=== PATIENT | female | born 1990 | race American Indian/Alaskan Native ===

== ENCOUNTER 2020-12-14 10:56 | Outpatient (CLI) | payer OTHER ==
[2020-12-14] MEDS ORDERED: LACTATED RINGERS 500 ML IV ONE (11:14)
[2020-12-14 11:33] VITALS: BP 123/73
--- NOTE | 2020-12-14 13:07 | Ultrasound Report ---
ULTRASOUND BIOPHYSICAL PROFILE INDICATION / CLINICAL INFORMATION: labor. COMPARISON: None available. FINDINGS: BREATHING MOVEMENT = 2 GROSS BODY MOVEMENT = 2 TONE = 2 QUALITATIVE AMNIOTIC FLUID VOLUME = 2 TOTAL BIOPHYSICAL SCORE = 8/ AMNIOTIC FLUID INDEX (cm) = 17.8 PRESENTATION: Cephalic. HEART RATE (beats per minute): 140 Additional findings: Anterior placenta is free of the os. No evidence of placental abruption. IMPRESSION: 1. Single live intrauterine . No significant abnormality. biophysical profile = 11/19 Signer Name: Ld Chiu MD Signed: 12/14/2020 1:02 PM Workstation Name: [id number]
== END 2020-12-14 13:35 | disposition home or self-care (01) ==
LOC: TRG 10:56 → APU 11:03 → TRG 13:35
PROVIDERS: ATTEND Obstetrics & Gynecology
DX: Z34.93 Encounter for supervision of normal pregnancy, unspecified, third trimester (principal); Z3A.37 37 weeks gestation of pregnancy
CPT/HCPCS: 59025; 76815; 76819

== ENCOUNTER 2021-01-09 11:57 | Outpatient (CLI) | payer OTHER ==
[2021-01-09 12:32] VITALS: BP 120/78
[2021-01-09 13:20] LABS: Bilirubin,Urine NEG (Negative); Blood,Urine NEG (Negative); Color,Urine Yellow (Yellow); Mucus,Urine FEW /HPF; Protein,Urine <15 mg/dL mg/dL (Negative); Urobilinogen,Urine < 2.0 mg/dL (<2.0)
[2021-01-09] MEDS ORDERED: LACTATED RINGERS 1,000 ML IV ONE (13:21)
== END 2021-01-09 13:00 | disposition home or self-care (01) ==
LOC: TRG 11:57 → APU 11:59 → TRG 13:00
PROVIDERS: ATTEND Obstetrics & Gynecology
DX: O99.353 Diseases of the nervous system complicating pregnancy, third trimester (principal); G43.909 Migraine, unspecified, not intractable, without status migrainosus; Z3A.34 34 weeks gestation of pregnancy
CPT/HCPCS: 59025; 81001

== ENCOUNTER 2021-01-17 05:05 | Inpatient (IN) | payer OTHER ==
--- NOTE | 2021-01-16 16:12 | History and Physical Report ---
History of Present Illness Date of examination: 01/17/21 Chief complaint: scheduled section History of present illness: Pt is a 30 year old -Martiniquais female SONY 02/11/21 at 36w3d presents for scheduled section secondary to [facility] recommendation for delivery between 36-38 wks for poorly controlled diabetes. She denies vaginal bleeding or leakage of fluid. She has had care at [facility] since 24 wks complicated by insulin dependent diabetes mellitus on 56u N/46uR, 32uR Q PM, 29u NPH as of 01/02/21; h/o placental abruption, polyhydramnios, prior x 1, h/o preeclampsia, LGA fetus. She is GBS positive. Past History Past Medical History: diabetes, migraines, GERD Past Surgical History: section [employer] History: chlamydia (remote history) Family/Genetic History: diabetes, hypertension Social history: no significant social history - Obstetrical History Expected Date of Delivery: 02/11/21 Actual Gestation: 36 Week(s) 2 Day(s) : 3 Para: 1 Hx # Term Pregnancies: 1 Number of Pregnancies: 0 Spontaneous Abortions: 1 Induced : 0 Number of Living Children: 1 Medications and Allergies Allergies Allergy/AdvReac Type Severity Reaction Status Date / Time No Known Allergies Allergy Verified 05/11/14 10:33 Home Medications Medication Instructions Recorded Confirmed Last Taken Type Acetaminophen/Codeine 1 tab PO Q6H PRN #15 tab 05/11/14 Unknown Rx [Acetaminophen-Codeine #3 TAB] Amoxicillin [Trimox CAP] 500 mg PO Q8H #30 capsule 05/11/14 Unknown Rx Review of Systems All systems: negative - Physical Exam Breasts: Positive: deferred Abdomen: Positive: soft (gravid) Uterus: Positive: enlarged (gravid ) Extremities: Positive: normal - Obstetrical FHR: auscultation normal Uterine Contraction Pattern: Irregular Uterine Tone Measurement Phase: Resting Results All other labs normal. Assessment and Plan A: IUP at 36w3d Insulin diabetes mellitus on 56u N/46uR, 32uR Q PM, 29u NPH as of 01/02/21 Previous x 1 LGA fetus Polyhydramnios H/o Preeclampsia H/o placental abruption in previous GBS positive P: Proceed with repeat section and other indicated procedures.
[~2021-01-17 05:05] MED LIST: OXYTOCIN DRIP 30 UNITS/500 ML BAG IV SCH
[2021-01-17] MEDS: LACTATED RINGERS 1,000 ML IV SCH ×2 (05:50→07:07)
[2021-01-17] MEDS ORDERED: BICITRA ORAL LIQD 30ML PO ONE (06:00)
[2021-01-17] MEDS ORDERED: ceFAZolin/Water 2 GM/20 ML 2 GM/20 ML SYRINGE IV NR (06:00)
[2021-01-17] MEDS ORDERED: FAMOTIDINE 20 MG/2 ML INJ IV ONE (06:00)
[2021-01-17] MEDS ORDERED: METOCLOPRAMIDE 10 MG/2 ML INJ IV ONE (06:00)
[2021-01-17 06:10] LABS: Basophils % (Auto) 0.4 % (0.0-1.8); Eosinophils # (Auto) 0.3 K/mm3 (0.0-0.4); Eosinophils % (Auto) 3.3 % (0.0-4.3); Hematocrit 31.6 % (30.3-42.9); Lymphocytes # (Auto) 3.3 K/mm3 (1.2-5.4); Lymphocytes % (Auto) 40.9 % (13.4-35.0); Mean Corpuscular HGB Conc 32 % (30-34); Mean Corpuscular Volume 74 fl (79-97); Monocytes # (Auto) 0.5 K/mm3 (0.0-0.8); Monocytes % (Auto) 6.3 % (0.0-7.3); Platelet Count 212 K/mm3 (140-440); Red Blood Count 4.26 M/mm3 (3.65-5.03); Red Cell Distribution Width 18.3 % (13.2-15.2)
--- NOTE | 2021-01-17 06:55 | Anesthesia Consultation ---
Anesthesia Consult and Med Hx Date of service: 01/17/21 - Airway Anesthetic Teeth Evaluation: Good ROM Head & Neck: Adequate Mental/Hyoid Distance: Adequate Mallampati Class: Class III Intubation Access Assessment: Probably Good - Pulmonary Exam CTA: Yes - Cardiac Exam Cardiac Exam: RRR - Pre-Operative Health Status ASA Pre-Surgery Classification: ASA3 Proposed Anesthetic Plan: Spinal - Pulmonary Hx Asthma: No COPD: No Hx Pneumonia: No - Central Nervous System Hx Seizures: No Hx Psychiatric Problems: No - Endocrine Hx Renal Disease: No Hx End Stage Renal Disease: No Hx Insulin Dependent Diabetes: Yes Hx Hypothyroidism: No Hx Hyperthyroidism: No - Hematic Hx Anemia: No Hx Sickle Cell Disease: No - Other Systems Hx Alcohol Use: No (occasionally) Hx Obesity: Yes
--- NOTE | 2021-01-17 06:56 | Anesthesia Day of Surgery ---
Anesthesia Day of Surgery - Day of Surgery Patient Examined: Yes Patient H&P Reviewed: Yes Patient is NPO: Yes
[2021-01-17] MEDS ORDERED: miSOPROStol 200 MCG TAB ONE (07:05)
[2021-01-17] MEDS ORDERED: ceFAZolin/STERILE WATER 2 GM/20 ML SYRINGE IV ONE (08:00)
[2021-01-17] MEDS ORDERED: WATER FOR IRRIG STERILE 1,500 ML BOTTLE IR ONE (08:00)
[2021-01-17] MEDS ORDERED: SODIUM CHLORIDE 0.9% IRR 1,500 ML BOTTLE IR ONE (08:00)
[2021-01-17] MEDS ORDERED: BUPIVACAINE/PF (0.5%) 5 MG/1 ML 30 ML VIAL INFILTRATI ONE (09:16)
[2021-01-17] MEDS ORDERED: LACTATED RINGERS 2,000 ML ONE (09:16)
[2021-01-17] MEDS ORDERED: ONDANSETRON 4 MG/2 ML INJ ONE (09:16)
[2021-01-17] MEDS ORDERED: dexAMETHasone 20 MG/5 ML VIAL ONE (09:16)
[2021-01-17] MEDS ORDERED: PHENYLEPHRINE/NS 1,000 MCG/10 ML SYRINGE (OR USE) IV ONE (09:16)
[2021-01-17] MEDS ORDERED: KETOROLAC 30 MG/1 ML INJ ONE (09:16)
--- NOTE | 2021-01-17 09:17 | Procedure Note ---
OB Delivery Note - Delivery Date of Delivery: 01/17/21 Surgeon: LILLIAM CASTANEDA Estimated blood loss: other (921 by QBL) - Section Preop diagnosis: repeat Postop diagnosis: same section procedure: section, repeat low transverse Disposition: PACU Complications: uterine atony Narrative: Please see operative report - Infant A at 1 minute: 9 at 5 minutes: 9 Gender: Male (4370g (9lb 10oz) @ 0822 am)
--- NOTE | 2021-01-17 09:22 | Operative Report ---
Operative Report Operative Report: Date of procedure: January 17, 2021 Preoperative diagnosis: 1) IUP at 36w3d 2) Poorly controlled insulin dependent Diabetes 3) Previous section x 1 4) Obesity Postoperative diagnosis: Same 5) Fibroid Uterus Procedure: Repeat low transverse section Surgeon: Dianne Braden M.D. Anesthesia: Regional Findings: 1) Viable male , Apgars 9 and 9, weight 4370 g, (9 lb 10 oz) in cephalic presentation. Terminal meconium. 2) Normal-appearing uterus ovaries and tubes Estimated blood loss: 921 by QBL IV fluids: 3000 mL Urine output: 600 mL, clear at the end of the procedure Drains: Ortiz to gravity Specimens: Placenta to pathology Complications:None. Counts correct x 3 Disposition: Stable to PACU Indication for procedure: Pt is a 30 year old at 36w3d who presents for scheduled section secondary to poorly controlled insulin dependent diabetes and previous x 1 after [facility] recommendation for delivery between 36 and 38 weeks. Operation in detail: After the risks, benefits, alternatives and complications were explained to the patient she gave informed consent for the procedure. She was subsequently taken to the operating room where regional anesthesia was noted to be adequate. She was placed in the dorsal supine position with leftward tilt and prepped and draped in a normal sterile fashion. heart tones were noted prior to incision. A timeout was performed. A Pfannenstiel skin incision was made with the knife and carried down to the layer of the fascia with the Bovie. The fascia was incised in the midline and the fascial incision was extended bilaterally with the Bovie. The fascial incision was then stretched. The rectus muscles were then in the midline and partially transected for adequate visualization. The peritoneum was then entered bluntly. The peritoneal incision was extended with good visualization of the bladder. The peritoneal incision was then stretched. An Abhijeet retractor was placed. The bladder blade was then placed. The vesicouterine peritoneum was grasped with smooth pick ups and incised with Metzenbaum scissors. A bladder flap was then created digitally and the bladder blade was replaced. A transverse incision was made in the lower uterine segment with a knife and extended bilaterally with the bandage scissors. Amniotomy was performed with egress of clear fluid. head delivered with ease, followed by shoulders and body. bulb suctioned at delivery. Cord clamped and cut. handed to NICU staff in attendance. The placenta was then delivered manually. The uterus was then exteriorized and cleared of all clots and debris. The hysterotomy was then reapproximated with 0 Monocryl in a running locked fashion. A second layer of the same suture was used in imbricating fashion. The hysterotomy was inspected and hemostasis was noted. The gutters were irrigated and cleared of all clots and debris. The uterus was placed back into the peritoneal cavity. The hysterotomy was again inspected and noted to be hemostatic. Surgicel was placed over the hysterotomy. The Abhijeet retractor was removed. The peritoneum was reapproximated with 0 Monocryl in a running fashion incorporating the rectus muscles. Surgicel was placed over the rectus muscles. The fascia was reapproximated with 0 Vicryl in a running fashion. The subcutaneous tissue was reapproximated with 2-0 Vicryl in a running fashion. The skin was reapproximated with 3-0 Monocryl in a subcuticular fashion. The incision was then covered with steri strips and a pressure dressing. The procedure was then ended. The patient tolerated the procedure well and was taken to the PACU in stable condition. All instrument, lap, and needle counts were correct 3.
--- NOTE | 2021-01-17 11:17 | Progress Note ---
Spinal Anesthesia Block - Spinal Anesthesia Block Start Time: 07:40 Stop Time: 07:42 Performed by:: SARINA GAMING Procedure: Sitting, sterile chlorahexadine 0.5% prep/drape, 1% lidocaine skin local, 25G spinal needle + introducer at L3-4, + CSF, - Heme, [1.9 ml 0.5% bupivacaine + 10 mcg dexmedetomidine] injected, drape removed, patient positioned supine with left uterine displacement, and spinal level verified to be adequate prior to surgery
[2021-01-17] MEDS ORDERED: HYDROmorphone 1 MG/1 ML INJ IV PRN (11:28)
[2021-01-17] MEDS ORDERED: FLU VACC QUAD 2021-22(6MOS UP)/PF 60 MCG/0.5 ML SYRINGE IM ONE (12:00)
[2021-01-17] MEDS ORDERED: MORPHINE 2 MG/1 ML INJ IV PRN (12:17)
[2021-01-17] MEDS ORDERED: ACETAMINOPHEN 325 MG TAB PO PRN (12:17)
[2021-01-17] MEDS ORDERED: SIMETHICONE 80 MG CHEW TAB PO PRN (12:17)
[2021-01-17] MEDS ORDERED: NALOXONE 0.4 MG/1 ML INJ IV PRN (12:17)
[2021-01-17] MEDS ORDERED: DEXTROSE 50% IN WATER (25GM) 50 ML SYRINGE IV PRN (12:17)
[2021-01-17] MEDS ORDERED: ONDANSETRON 4 MG/2 ML INJ IV PRN (12:17)
[2021-01-17] MEDS ORDERED: LANOLIN/ZINC/DIMETHICONE (LANSINOH) 7 GM TP PRN (12:17)
[2021-01-17] MEDS ORDERED: MAGNESIUM HYDROXIDE (MOM) ORAL LIQD UDC PO PRN (12:17)
[2021-01-17] MEDS ORDERED: OXYTOCIN DRIP 30 UNITS/500 ML BAG IV SCH (12:17)
[2021-01-17] MEDS ORDERED: MORPHINE 4 MG/1 ML INJ IV PRN (12:17)
[2021-01-17] MEDS ORDERED: WITCH HAZEL/ GLYCERIN PAD TP PRN (12:17)
[2021-01-17] MEDS ORDERED: ceFAZolin/NS 1 GM/50 ML 1 GM/50 ML BAG IV SCH (12:17)
[2021-01-17] MEDS ORDERED: D5W/LACTATED RINGERS 1,000 ML IV SCH (12:17)
[2021-01-17] MEDS: KETOROLAC 30 MG/1 ML INJ IV SCH ×2 (15:17→22:01)
[2021-01-17] MEDS: INSULIN REGULAR, HUMAN 100 UNITS/1 ML SUB-Q SCH ×2 (16:22→22:01)
[2021-01-17] MEDS ORDERED: LACTATED RINGERS 1,000 ML IV SCH (18:00)
[2021-01-17] MEDS ORDERED: TETANUS,DIPH,PERTUSS(ACELL) VACCINE 0.5 ML SYRINGE IM ONE (18:33)
[2021-01-17 21:08] LABS: Hematocrit 25.7 % (30.3-42.9); Hemoglobin 8.2 gm/dl (10.1-14.3)
[2021-01-18] MEDS ORDERED: ceFAZolin/NS 1 GM/50 ML 1 GM/50 ML BAG IV SCH (01:30)
[2021-01-18] MEDS: KETOROLAC 30 MG/1 ML INJ IV SCH (04:12)
[2021-01-18] MEDS: INSULIN REGULAR, HUMAN 100 UNITS/1 ML SUB-Q SCH ×3 (04:18→18:10)
--- NOTE | 2021-01-18 08:20 | Progress Note ---
Assessment and Plan - Patient Problems (1) Status post repeat low transverse section Current Visit: Yes Status: Acute Plan to address problem: Continue routine PP orders Keep dressing clean and dry, remove on POD#2 Anticipate d/c home in 24-48 hr if stable (2) Insulin dependent diabetes mellitus Current Visit: Yes Status: Acute Plan to address problem: Blood glucose levels elevated Physician managing insulin dosing Continue to monitor blood glucose levels per orders (3) Anemia Current Visit: Yes Status: Acute Qualifiers: Anemia type: iron deficiency Plan to address problem: Asymptomatic Increase iron rich foods into diet Continue daily oral iron supplementation as ordered Subjective - Subjective Date of service: 01/18/21 Principal diagnosis: S/P repeat C/S; POD#1; IDDM Interval history: Pt is a 30 year old -Thai female SONY 02/11/21 at 36w3d presents for scheduled section secondary to [facility] recommendation for delivery between 36-38 wks for poorly controlled diabetes. She denies vaginal bleeding or leakage of fluid. She has had care at [facility] since 24 wks complicated by insulin dependent diabetes mellitus on 56u N/46uR, 32uR Q PM, 29u NPH as of 01/02/21; h/o placental abruption, polyhydramnios, prior x 1, h/o preeclampsia, LGA fetus. She is GBS positive. Patient reports: appetite normal, voiding normally, pain well controlled (with medications), flatus, ambulating normally, no bowel movement [place]: in NICU, bottle feeding Objective - Vital Signs Latest vital signs: Vital Signs Temp Pulse Resp BP BP Pulse Ox Pulse Ox 01/18/21 04:42 18 01/18/21 04:23 105 H 18 114/64 98 01/18/21 04:12 18 01/18/21 00:43 98.5 F 107 H 18 101/58 98 01/17/21 22:31 18 01/17/21 22:01 18 01/17/21 21:00 100 01/17/21 20:55 18 01/17/21 20:31 98.1 F 108 H 18 102/67 97 01/17/21 20:25 18 01/17/21 16:19 98.6 F 98 H 18 109/76 97 01/17/21 12:54 97 01/17/21 11:45 98.4 F 105 H 18 110/59 110/59 98 97 01/17/21 10:15 97.9 F 99 H 18 126/33 99 01/17/21 10:00 86 13 103/44 97 01/17/21 09:45 88 13 105/63 97 01/17/21 09:40 89 12 103/43 96 01/17/21 09:35 94 H 17 103/49 97 01/17/21 09:28 98.1 F 84 21 105/60 97 Intake and Output 01/17/21 01/18/21 01/18/21 23:59 07:59 15:59 Intake Total 1320 Output Total 2400 800 Balance -1080 -800 Intake: Oral 720 Intake, Free Water 600 Output: Urine 2400 800 Indwelling Catheter 2400 Void 800 Other: Total, Intake Amount 240 Total, Output Amount 1800 800 - Exam Breasts: Present: normal Cardiovascular: Present: Regular rate Lungs: Present: Normal air movement Abdomen: Present: soft, tenderness Uterus: Present: firm, fundal height below umbilicus (U-2) Extremities: Present: edema Deep Tendon Reflex Grade: Normal +2 Incision: Present: dressed (no shadow drainage or bleeding noted) - Labs Labs: Abnormal lab results 01/17/21 01/17/21 01/17/21 Range/Units 09:44 16:15 20:54 Hgb 8.2 L (10.1-14.3) gm/dl Hct 25.7 L (30.3-42.9) % POC Glucose 137 H 229 H (70-105) mg/dL 01/17/21 01/18/21 Range/Units 21:53 04:11 Hgb (10.1-14.3) gm/dl Hct (30.3-42.9) % POC Glucose 298 H 194 H (70-105) mg/dL
[2021-01-18] MEDS ORDERED: MEASLES, MUMPS & RUBELLA 12,500 UNIT/0.5 ML VACCINE SUB-Q ONE (09:24)
[2021-01-18] MEDS ORDERED: TETANUS,DIPH,PERTUSS(ACELL) VACCINE 0.5 ML SYRINGE IM ONE (09:24)
[2021-01-18] MEDS: oxyCODONE /ACETAMINOPHEN 5-325MG TAB PO PRN ×2 (09:56→18:13)
[2021-01-18] MEDS: FERROUS SULFATE 325 MG TAB PO SCH (09:56)
[2021-01-18] MEDS: INSULIN NPH, HUMAN 100 UNIT/1 ML SUB-Q SCH ×2 (09:57→18:09)
[2021-01-18] MEDS ORDERED: FLU VACC QUAD 2021-22(6MOS UP)/PF 60 MCG/0.5 ML SYRINGE IM ONE (12:00)
--- NOTE | 2021-01-18 16:01 | Post Anesthesia Evaluation ---
- Post Anesthesia Evaluation Patient Participated: Yes Airway Patent: Yes Stable Respiratory Function: Yes Nausea/Vomiting: No Temp > 96.8F: Yes Pain Manageable: Yes Adequeate Hydration: Yes Anesthesia Complications: No Block Receding Appropriately: Yes
[2021-01-18] MEDS: IBUPROFEN 800 MG TAB PO PRN (19:00)
[2021-01-19] MEDS: IBUPROFEN 800 MG TAB PO PRN ×2 (02:48→14:12)
--- NOTE | 2021-01-19 07:47 | Progress Note ---
Assessment and Plan - Patient Problems (1) Status post repeat low transverse section Current Visit: Yes Status: Acute Plan to address problem: Glucose levels are improved Will administer Flexeril to assist in back pain Monitor overnight with consideration for discharge tomorrow Subjective - Subjective Date of service: 01/19/21 Principal diagnosis: S/P repeat C/S; POD#1; IDDM Interval history: Patient is postop day #2 status post a repeat delivery. Today she complains of lower back pain. She states that the pain has been affecting her ability to ambulate adequately. She reports that she was evaluated by anesthesia yesterday. She is tolerating her diet without complication. Patient reports: appetite normal, voiding normally Reading: doing well Objective - Vital Signs Latest vital signs: Vital Signs Temp Pulse Resp BP Pulse Ox Pulse Ox 01/19/21 03:29 99 01/19/21 02:48 18 99 01/19/21 00:22 101 H 95 01/18/21 19:40 99 01/18/21 16:56 98.8 F 103 H 18 115/79 99 01/18/21 12:48 97.6 F 115 H 18 126/73 100 01/18/21 08:30 100 01/18/21 08:27 98.7 F 99 H 20 116/78 100 Intake and Output 01/18/21 01/19/21 01/19/21 22:59 06:59 14:59 Intake Total 200 Balance 200 Intake: Oral 200 Other: Total, Intake Amount 200 # Voids Void 1 - Labs Labs: Abnormal lab results 01/18/21 01/18/21 01/18/21 Range/Units 09:48 18:03 22:01 POC Glucose 183 H 129 H 110 H (70-105) mg/dL 01/19/21 Range/Units 06:56 POC Glucose 117 H (70-105) mg/dL
[2021-01-19] MEDS: CYCLOBENZAPRINE 10 MG TAB PO SCH ×3 (08:56→20:20)
[2021-01-19] MEDS: FERROUS SULFATE 325 MG TAB PO SCH (09:42)
[2021-01-19] MEDS: INSULIN REGULAR, HUMAN 100 UNITS/1 ML SUB-Q SCH ×2 (09:43→17:12)
[2021-01-19] MEDS: INSULIN NPH, HUMAN 100 UNIT/1 ML SUB-Q SCH ×2 (09:46→17:12)
[2021-01-19] MEDS: oxyCODONE /ACETAMINOPHEN 5-325MG TAB PO PRN ×3 (10:36→23:17)
[2021-01-20] MEDS: oxyCODONE /ACETAMINOPHEN 5-325MG TAB PO PRN ×2 (05:46→15:32)
[2021-01-20] MEDS: CYCLOBENZAPRINE 10 MG TAB PO SCH (08:24)
[2021-01-20] MEDS: INSULIN NPH, HUMAN 100 UNIT/1 ML SUB-Q SCH (08:28)
[2021-01-20] MEDS: INSULIN REGULAR, HUMAN 100 UNITS/1 ML SUB-Q SCH (08:28)
--- NOTE | 2021-01-20 15:00 | Discharge Summary ---
Providers - Providers Date of Admission: 01/17/21 05:05 Date of discharge: 01/20/21 Attending physician: LILLIAM CASTANEDA 01/17/21 12:17 Consult to Footwear Sales Leader [CONS] Routine Reason For Exam: Primary care physician: LILLIAM CASTANEDA Hospitalization Reason for admission: section Delivery: Procedure: repeat low transverse Episiotomy: none Laceration: none Incision: dry, intact (steri-strips intact, no drainage or bleeding noted, abdominal binder in place) Other procedures: none complications: none Discharge diagnosis: delivery [place] baby: male Hospital course: Pt is a 30 year old -Citizen [place] female SONY 02/11/21 at 36w3d presents for scheduled section secondary to [facility] recommendation for delivery between 36-38 wks for poorly controlled diabetes. She denies vaginal bleeding or leakage of fluid. She has had care at [facility] since 24 wks complicated by insulin dependent diabetes mellitus on 56u N/46uR, 32uR Q PM, 29u NPH as of 01/02/21; h/o placental abruption, polyhydramnios, prior x 1, h/o preeclampsia, LGA fetus. She is GBS positive. Condition at discharge: Stable Disposition: 01 HOME / SELF CARE / HOMELESS - Discharge Diagnoses (1) Status post repeat low transverse section Status: Acute (2) Insulin dependent diabetes mellitus Status: Acute (3) Anemia Status: Acute Qualifiers: Anemia type: iron deficiency Plan - Discharge Medications Prescriptions: Cyclobenzaprine HCl [Flexeril 5 MG TAB] 5 mg PO TID PRN #15 tab PRN Reason: back pain Ibuprofen [Motrin] 800 mg PO Q8HR PRN #60 tablet PRN Reason: Pain , Severe (7-10) oxyCODONE /ACETAMINOPHEN [Percocet 5/325] 1 tab PO Q6HR PRN #30 tablet PRN Reason: Pain - Provider Discharge Summary Activity: routine, no sex for 6 weeks, no heavy lifting 4 weeks, no strenuous exercise Diet: routine (Iron rich diet) Instructions: routine Additional instructions: [] Smoking cessation referral if applicable(refer to patient education folder for contact #) [] Refer to [facility] Booklet Call your doctor immediately for: * Fever > 100.5 * Heavy vaginal bleeding ( >1 pad per hour) * Severe persistent headache * Shortness of breath * Reddened, hot, painful area to leg or breast * Drainage or odor from incision. * Keep incision clean and dry at all times and follow doctor's instructions regarding bathing/showering * Continue insulin as follows at home until seen in the office in 1 week: NPH 14 units and Regular 11 units in the morning NPH 7 units and Regular 8 units in the PM - Follow up plan Follow up: LILLIAM CASTANEDA MD [Primary Care Provider] - 7 Days Forms: [facility] Discharge Summary
[2021-01-20 17:31] VITALS: BP 123/80
== END 2021-01-20 19:30 | disposition home or self-care (01) | DRG 765 ==
LOC: APU 05:05 → OB 10:30
PROVIDERS: ADMIT Obstetrics & Gynecology; ATTEND Obstetrics & Gynecology
PROC: 10D00Z1 Extraction of Products of Conception, Low, Open Approach (ICD-10-PCS; principal; 2021-01-17)
PROC: 3E0234Z Introduction of Serum, Toxoid and Vaccine into Muscle, Percutaneous Approach (ICD-10-PCS; 2021-01-18)
DX: O24.12 Pre-existing type 2 diabetes mellitus, in childbirth (principal); O60.14X0 Preterm labor third trimester with preterm delivery third trimester, not applicable or unspecified; O36.63X0 Maternal care for excessive fetal growth, third trimester, not applicable or unspecified; O40.3XX0 Polyhydramnios, third trimester, not applicable or unspecified; Z37.0 Single live birth; Z3A.36 36 weeks gestation of pregnancy; D50.8 Other iron deficiency anemias; Z20.822 Contact with and (suspected) exposure to COVID-19; O34.13 Maternal care for benign tumor of corpus uteri, third trimester; O34.211 Maternal care for low transverse scar from previous cesarean delivery; D25.9 Leiomyoma of uterus, unspecified; O99.824 Streptococcus B carrier state complicating childbirth; Z91.048 Other nonmedicinal substance allergy status; Z23 Encounter for immunization; O99.354 Diseases of the nervous system complicating childbirth; G43.909 Migraine, unspecified, not intractable, without status migrainosus; E11.65 Type 2 diabetes mellitus with hyperglycemia; O99.62 Diseases of the digestive system complicating childbirth; K21.9 Gastro-esophageal reflux disease without esophagitis; Z83.3 Family history of diabetes mellitus; Z82.49 Family history of ischemic heart disease and other diseases of the circulatory system; O99.214 Obesity complicating childbirth; O77.0 Labor and delivery complicated by meconium in amniotic fluid; O90.81 Anemia of the puerperium; Z79.4 Long term (current) use of insulin
CPT/HCPCS: 36415; 59025; 82962; 85014; 85018; 85025; 86592; 86850; 86900; 86901; 88307; 99211; G0378; G0463; J0690; J1100; J1170; J1815; J1885; J2270; J2370; J2405; J2765; J3490; J7120; U0003

== ENCOUNTER 2021-01-24 16:31 | Emergency (ER) | payer OTHER ==
[2021-01-24 17:59] LABS: Basophils % (Auto) 0.5 % (0.0-1.8); Eosinophils # (Auto) 0.2 K/mm3 (0.0-0.4); Eosinophils % (Auto) 1.9 % (0.0-4.3); Hematocrit 25.1 % (30.3-42.9); Hemoglobin 7.7 gm/dl (10.1-14.3); Lymphocytes # (Auto) 2.2 K/mm3 (1.2-5.4); Lymphocytes % (Auto) 26.7 % (13.4-35.0); Mean Corpuscular HGB Conc 31 % (30-34); Mean Corpuscular Volume 76 fl (79-97); Monocytes # (Auto) 0.6 K/mm3 (0.0-0.8); Monocytes % (Auto) 7.5 % (0.0-7.3); Platelet Count 313 K/mm3 (140-440); Red Blood Count 3.33 M/mm3 (3.65-5.03)
--- NOTE | 2021-01-24 18:01 | Emergency Department Report ---
ED General Adult HPI - General Chief complaint: Dyspnea/Respdistress Stated complaint: SOB CHEST PAIN HAD SURGERY 01/17 Time Seen by Provider: 01/24/21 17:00 Source: patient Mode of arrival: Ambulatory Limitations: No Limitations - History of Present Illness Initial comments: The patient presents to the emergency department the chief complaint of chest pain or shortness of breath that started yesterday. Patient complains of coughing as well but denies fever. Patient has not received the Covid 19 vaccine. Patient states the chest pain or shortness of breath is worse walking. Patient denies abdominal pain, headache, weakness. -: Sudden Location: chest Radiation: non-radiation Severity scale (0 -10): 5 Quality: aching Improves with: none Worsens with: none Associated Symptoms: denies other symptoms Treatments Prior to Arrival: none - Related Data Home Medications Medication Instructions Recorded Confirmed Last Taken Aspirin [[place]] 1 tab PO DAILY 01/17/21 01/17/21 01/15/21 Insulin NPH Human Isophane 54 units SQ DAILY 01/17/21 01/17/21 01/16/21 [Humulin N] Insulin Regular, Human [Humulin R] 44 units SQ DAILY 01/17/21 01/17/21 01/16/21 Previous Rx's Medication Instructions Recorded Last Taken Type Cyclobenzaprine HCl [Flexeril 5 MG 5 mg PO TID PRN #15 tab 01/19/21 Unknown Rx TAB] Ibuprofen [Motrin] 800 mg PO Q8HR PRN #60 tablet 01/19/21 Unknown Rx oxyCODONE /ACETAMINOPHEN [Percocet 1 tab PO Q6HR PRN #30 tablet 01/19/21 Unknown Rx 5/325] Albuterol Mdi (or & Nicu Only) 2 puff IH Q4HR PRN #1 inhalation 01/24/21 Unknown Rx [ProAir HFA Inhaler] Azithromycin [Zithromax Z-ALICJA] 250 mg PO DAILY #6 tablet 01/24/21 Unknown Rx predniSONE [Deltasone] 20 mg PO DAILY #15 tablet 01/24/21 Unknown Rx Allergies Allergy/AdvReac Type Severity Reaction Status Date / Time nickel Allergy Rash Verified 01/24/21 16:36 ED Review of Systems ROS: Stated complaint: SOB CHEST PAIN HAD SURGERY 01/17 Other details as noted in HPI Constitutional: denies: chills, fever Eyes: denies: eye pain, eye discharge, vision change ENT: denies: ear pain, throat pain Respiratory: shortness of breath. denies: cough, wheezing Cardiovascular: chest pain, dyspnea on exertion. denies: palpitations Endocrine: no symptoms reported Gastrointestinal: denies: abdominal pain, nausea, diarrhea Genitourinary: denies: urgency, dysuria, discharge Musculoskeletal: denies: back pain, joint swelling, arthralgia Skin: denies: rash, lesions Neurological: denies: headache, weakness, paresthesias Psychiatric: denies: anxiety, depression Hematological/Lymphatic: denies: easy bleeding, easy bruising ED Past Medical Hx - Past Medical History Hx Hypertension: Yes (PIH 2016) Hx Congestive Heart Failure: No Hx Diabetes: Yes (GDM 2016 and current) Hx Deep Vein Thrombosis: No Hx Renal Disease: No Hx Sickle Cell Disease: No Hx Seizures: No Hx Asthma: No Hx COPD: No Hx HIV: No - Social History Smoking Status: Never Smoker - Medications Home Medications: Home Medications Medication Instructions Recorded Confirmed Last Taken Type Aspirin [Vazalore] 1 tab PO DAILY 01/17/21 01/17/21 01/15/21 History Insulin NPH Human Isophane 54 units SQ DAILY 01/17/21 01/17/21 01/16/21 History [Humulin N] Insulin Regular, Human [Humulin R] 44 units SQ DAILY 01/17/21 01/17/21 01/16/21 History Cyclobenzaprine HCl [Flexeril 5 MG 5 mg PO TID PRN #15 tab 01/19/21 Unknown Rx TAB] Ibuprofen [Motrin] 800 mg PO Q8HR PRN #60 tablet 01/19/21 Unknown Rx oxyCODONE /ACETAMINOPHEN [Percocet 1 tab PO Q6HR PRN #30 tablet 01/19/21 Unknown Rx 5/325] Albuterol Mdi (or & Nicu Only) 2 puff IH Q4HR PRN #1 inhalation 01/24/21 Unknown Rx [ProAir HFA Inhaler] Azithromycin [Zithromax Z-ALICJA] 250 mg PO DAILY #6 tablet 01/24/21 Unknown Rx predniSONE [Deltasone] 20 mg PO DAILY #15 tablet 01/24/21 Unknown Rx ED Physical Exam - General Limitations: No Limitations General appearance: alert, in no apparent distress - Head Head exam: Present: atraumatic, normocephalic - Eye Eye exam: Present: normal appearance, PERRL, EOMI - ENT ENT exam: Present: mucous membranes moist - Neck Neck exam: Present: normal inspection - Respiratory Respiratory exam: Present: decreased breath sounds. Absent: respiratory distress - Cardiovascular Cardiovascular Exam: Present: normal rhythm, tachycardia. Absent: systolic murmur, diastolic murmur, rubs, gallop - GI/Abdominal GI/Abdominal exam: Present: soft, normal bowel sounds. Absent: distended, tenderness - Extremities Exam Extremities exam: Present: normal inspection - Back Exam Back exam: Present: normal inspection - Neurological Exam Neurological exam: Present: alert, oriented X3, CN II-XII intact. Absent: motor sensory deficit - Psychiatric Psychiatric exam: Present: normal affect, normal mood - Skin Skin exam: Present: warm, dry, intact, normal color. Absent: rash ED Course Vital Signs 01/24/21 01/24/21 01/24/21 16:37 16:51 17:01 Temperature 98.4 F Pulse Rate 114 H 106 H Respiratory 22 25 H Rate Blood Pressure 151/93 149/97 Blood Pressure [Left] O2 Sat by Pulse 99 98 99 Oximetry 01/24/21 01/24/21 01/24/21 17:06 17:15 17:31 Temperature Pulse Rate 110 H 104 H 101 H Respiratory 18 34 H 33 H Rate Blood Pressure 152/99 143/98 Blood Pressure 152/99 [Left] O2 Sat by Pulse 100 100 98 Oximetry 01/24/21 01/24/21 01/24/21 17:45 18:01 18:15 Temperature Pulse Rate 104 H 97 H 100 H Respiratory 25 H 38 H 41 H Rate Blood Pressure 145/94 146/86 148/92 Blood Pressure [Left] O2 Sat by Pulse 96 98 99 Oximetry 01/24/21 01/24/21 01/24/21 18:31 18:51 19:01 Temperature Pulse Rate 101 H 93 H Respiratory 30 H 36 H Rate Blood Pressure 148/92 143/85 151/86 Blood Pressure [Left] O2 Sat by Pulse 95 98 98 Oximetry 01/24/21 01/24/21 01/24/21 19:15 19:31 19:41 Temperature Pulse Rate 105 H 107 H 95 H Respiratory 29 H 13 22 Rate Blood Pressure 156/93 143/85 Blood Pressure 155/93 [Left] O2 Sat by Pulse 98 100 98 Oximetry 01/24/21 01/24/21 19:45 22:04 Temperature Pulse Rate 93 H 94 H Respiratory 22 18 Rate Blood Pressure 143/85 Blood Pressure 146/96 [Left] O2 Sat by Pulse 99 99 Oximetry ED Medical Decision Making - Lab Data Result diagrams: 01/24/21 17:22 Lab Results 01/24/21 01/24/21 01/24/21 Range/Units 17:22 17:22 17:22 WBC 8.3 (4.5-11.0) K/mm3 RBC 3.33 L (3.65-5.03) M/mm3 Hgb 7.7 L (10.1-14.3) gm/dl Hct 25.1 L (30.3-42.9) % MCV 76 L (79-97) fl MCH 23 L (28-32) pg MCHC 31 (30-34) % RDW 20.0 H (13.2-15.2) % Plt Count 313 (140-440) K/mm3 Lymph % (Auto) 26.7 (13.4-35.0) % [place] % (Auto) 7.5 H (0.0-7.3) % Eos % (Auto) 1.9 (0.0-4.3) % Baso % (Auto) 0.5 (0.0-1.8) % Lymph # (Auto) 2.2 (1.2-5.4) K/mm3 [place] # (Auto) 0.6 (0.0-0.8) K/mm3 Eos # (Auto) 0.2 (0.0-0.4) K/mm3 Baso # (Auto) 0.0 (0.0-0.1) K/mm3 Seg Neutrophils % 63.4 (40.0-70.0) % Seg Neutrophils # 5.2 (1.8-7.7) K/mm3 PT 13.3 (12.2-14.9) Sec. INR 0.91 (0.87-1.13) APTT 26.7 (24.2-36.6) Sec. D-Dimer 1832.29 H (0-234) ng/mlDDU Total Creatine Kinase 103 (30-135) units/L CK-MB (CK-2) 2.0 (0.0-4.0) ng/mL CK-MB (CK-2) Rel Index 1.9 (0-4) Troponin T < 0.010 (0.00-0.029) ng/mL NT-Pro-B Natriuret Pep 586.3 H (0-450) pg/mL Urine Color (Yellow) Urine Turbidity (Clear) Urine pH (5.0-7.0) Ur Specific [place] (1.003-1.030) Urine Protein (Negative) mg/dL Urine Glucose (UA) (Negative) mg/dL Urine Ketones (Negative) mg/dL Urine Blood (Negative) Urine Nitrite (Negative) Urine Bilirubin (Negative) Urine Urobilinogen (<2.0) mg/dL Ur Leukocyte Esterase (Negative) Urine WBC (Auto) (0.0-6.0) /HPF Urine RBC (Auto) (0.0-6.0) /HPF U Epithel Cells (Auto) (0-13.0) /HPF Urine Mucus /HPF Urine Yeast (Budding) /HPF Urine HCG, Qual (Negative) 01/24/21 Range/Units Unknown WBC (4.5-11.0) K/mm3 RBC (3.65-5.03) M/mm3 Hgb (10.1-14.3) gm/dl Hct (30.3-42.9) % MCV (79-97) fl MCH (28-32) pg MCHC (30-34) % RDW (13.2-15.2) % Plt Count (140-440) K/mm3 Lymph % (Auto) (13.4-35.0) % [place] % (Auto) (0.0-7.3) % Eos % (Auto) (0.0-4.3) % Baso % (Auto) (0.0-1.8) % Lymph # (Auto) (1.2-5.4) K/mm3 [place] # (Auto) (0.0-0.8) K/mm3 Eos # (Auto) (0.0-0.4) K/mm3 Baso # (Auto) (0.0-0.1) K/mm3 Seg Neutrophils % (40.0-70.0) % Seg Neutrophils # (1.8-7.7) K/mm3 PT (12.2-14.9) Sec. INR (0.87-1.13) APTT (24.2-36.6) Sec. D-Dimer (0-234) ng/mlDDU Total Creatine Kinase (30-135) units/L CK-MB (CK-2) (0.0-4.0) ng/mL CK-MB (CK-2) Rel Index (0-4) Troponin T (0.00-0.029) ng/mL NT-Pro-B Natriuret Pep (0-450) pg/mL Urine Color Red (Yellow) Urine Turbidity Slightly-cloudy (Clear) Urine pH 8.0 H (5.0-7.0) Ur Specific [place] 1.014 (1.003-1.030) Urine Protein 30 mg/dl (Negative) mg/dL Urine Glucose (UA) Neg (Negative) mg/dL Urine Ketones Neg (Negative) mg/dL Urine Blood Lg (Negative) Urine Nitrite Neg (Negative) Urine Bilirubin Neg (Negative) Urine Urobilinogen < 2.0 (<2.0) mg/dL Ur Leukocyte Esterase Mod (Negative) Urine WBC (Auto) 59.0 H (0.0-6.0) /HPF Urine RBC (Auto) 183.0 (0.0-6.0) /HPF U Epithel Cells (Auto) 7.0 (0-13.0) /HPF Urine Mucus Few /HPF Urine Yeast (Budding) 3+ /HPF Urine HCG, Qual Negative (Negative) - EKG Data -: EKG Interpreted by Me EKG shows normal: sinus rhythm Rate: tachycardia - Radiology Data Radiology results: report reviewed - Medical Decision Making Patient is approximately 2 weeks status post section delivery with baby in NICU Discussed results with patient Discussed the need for the patient to get tested for Covid because her findings on CT along with her symptoms are consistent with a COVID-19 infection Critical care attestation.: If time is entered above; I have spent that time in minutes in the direct care of this critically ill patient, excluding procedure time. ED Disposition Clinical Impression: Bilateral pneumonia, Suspected COVID-19 virus infection Disposition: HOME / SELF CARE / HOMELESS Is pt being admited?: No Does the pt Need Aspirin: No Condition: Stable Instructions: Bacterial Pneumonia (ED), Community-Acquired Pneumonia, Adult, C OVID-19 Frequently Asked Questions, COVID-19 Additional Instructions: return if worse Time of Disposition: 22:23
[2021-01-24 18:08] LABS: INR 0.91 (0.87-1.13)
[2021-01-24 18:09] LABS: Partial Thromboplastin Time 26.7 Sec. (24.2-36.6)
[2021-01-24 19:44] LABS: Bilirubin,Urine NEG (Negative); Blood,Urine LG (Negative); Color,Urine Red (Yellow); Mucus,Urine FEW /HPF; Urobilinogen,Urine < 2.0 mg/dL (<2.0)
[2021-01-24 19:50] LABS: HCG Qualitative,Urine Negative (Negative)
--- NOTE | 2021-01-24 20:53 | XRay Report ---
CHEST 1 VIEW 01/24/2021 7:42 PM INDICATION / CLINICAL INFORMATION: Dyspnea. COMPARISON: None available. FINDINGS: SUPPORT DEVICES: None. HEART / MEDIASTINUM: The heart size and pulmonary vasculature are normal. LUNGS / PLEURA: There is mild to moderate patchy parenchymal disease in the right midlung and both lo wer lung zones. No pleural effusion. No pneumothorax. ADDITIONAL FINDINGS: No significant additional findings. IMPRESSION: Patchy parenchymal opacities in both lower lung zones, right greater than left. The findi ngs are nonspecific and could be related to pneumonia, aspiration or edema. Signer Name: Jere Acosta MD Signed: 01/24/2021 8:48 PM Workstation Name: [id number]
--- NOTE | 2021-01-24 22:04 | Cat Scan Report ---
CTA CHEST WITH CONTRAST INDICATION / CLINICAL INFORMATION: CP/SOB/ elevated ddimer. TECHNIQUE: Axial CT images were obtained through the chest after injection of 100 cc of Omnipaque 350 IV contrast. 3 plane MIP and/or 3D reconstructions were produced. All CT scans at this location are performed using CT dose reduction for ALARA by means of automated exposure control. COMPARISON: None available. FINDINGS: PULMONARY ARTERIES: No pulmonary emboli. THORACIC AORTA: No significant abnormality. HEART: No significant abnormality. CORONARY ARTERY CALCIFICATION: None. MEDIASTINUM / ADÁN: No significant abnormality. PLEURA: Trace bilateral pleural effusions. No pneumothorax. LUNGS: There are scattered ground glass opacities throughout both lungs. ADDITIONAL FINDINGS: None. UPPER ABDOMEN: No acute findings. SKELETAL STRUCTURES: No significant osseous abnormality. IMPRESSION: 1. No CT evidence for pulmonary embolism. 2. Scattered groundglass opacities throughout the bilateral lungs which can be seen with atypical inf ectious process such as Covid pneumonia. 3. Trace bilateral pleural effusions. Signer Name: Bry Hercules DO Signed: 01/24/2021 10:00 PM Workstation Name: [id number]
[2021-01-24] MEDS ORDERED: MORPHINE 4 MG/1 ML INJ IV ONE (22:08)
[2021-01-24 22:46] VITALS: BP 165/98
--- NOTE | 2021-01-31 14:27 | Electrocardiograph Report ---
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
== END 2021-01-24 22:45 | disposition home or self-care (01) ==
LOC: ED 16:31
DX: J18.9 Pneumonia, unspecified organism (principal); Z20.822 Contact with and (suspected) exposure to COVID-19; I10 Essential (primary) hypertension; E11.8 Type 2 diabetes mellitus with unspecified complications; Z91.048 Other nonmedicinal substance allergy status
CPT/HCPCS: 36415; 71045; 71275; 81001; 81025; 82550; 82553; 83880; 84484; 85025; 85379; 85610; 85730; 87086; 93005; 96374; 99284; J2270; Q9967